=== PATIENT | female | born 1970 | race Caucasian/White ===

== ENCOUNTER 2016-11-05 17:12 | Emergency (ER) | payer OTHER ==
[~2016-11-05 17:12] MED LIST: XANAX0.25 MG PO; ZONISAMIDE25 MG PO
--- NOTE | 2016-11-05 18:04 | ED NURSING NOTES ---
Clinical Report - Nurses [facility] [address] [place] [address] 11/05/2016 17:12 Patient: LANA SOUSA TRIAGE Triage time 1722 PM. Chief Complaint: HEADACHE and (LEFT SIDED HEADACHE, JEW, EYE, NECK). Alert. No acute distress. HAMILTON COMA SCORE: [place] Coma Scale: 15- eyes open spontaneously (4); best verbal response- oriented x 4 (5); best motor response- obeys commands (6). --17:26 Jeremy Mir R.N. 17:22 11/05/16. BP: 136/87. HR: 74. RR: 16. O2 saturation: 98%. Temp: 97.7 F (oral). Pain level now: 07/01. --17:26 Jeremy Mir R.N. Weight: 79.3 kg stated. Height/Length: 65 inches Per Patient. BMI: 29.1. --17:26 Jeremy Mir R.N. Medications Xanax Oral (Tablet 0.25 mg) 1/2 tab , as needed, last dose 0600. --17:24 Jeremy Mir R.N. Allergies Aleve. (TINITIS) --17:24 Jeremy Mir R.N. History Arrived by private vehicle. Historian: patient. This started yesterday. 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 (HEAT). PAST MEDICAL HX: Headaches. SOCIAL HX: Light tobacco smoker (cigarette)- less than 1/2 a pack per day. Occasional alcohol use. History of drug use. (NO). FALL RISK ASSESSMENT: Fall risk assessment completed. No fall risk identified. NUTRITIONAL RISK ASSESSMENT: The nutritional risk assessment revealed no deficiencies. FUNCTIONAL ASSESSMENT: Functional assessment: no impairments noted. LEARNING NEEDS ASSESSMENT: The learning needs assessment revealed no barriers. SKIN INTEGRITY ASSESSMENT: Skin integrity risk assessment completed. No skin integrity risk identified. --17:26 Adeola, Jeremy, R.N. PROBLEMS: Chronic Headache. Tinnitus. Dizziness. Near Syncope. Lesion to right frontal lobe. --17:50 Jeremy Mir R.N. Hypertension [RuleOut]. --17:50 Jeremy Mir R.N. ADDITIONAL SURGERIES: Appendectomy. --17:50 Jeremy Mir R.N. PHYSICAL ASSESSMENT Ambulatory to room. HEENT: No facial asymmetry noted. Pupils equal, round and reactive to light. RESPIRATORY: Respirations not labored. Breath sounds within normal limits. CVS: Capillary refill less than 2 seconds. GI / : Abdomen soft and nontender. SKIN: Skin is warm and dry. --17:27 Jeremy Mir R.N. NURSING PROGRESS NOTES 17:48 11/05/2016 Toradol (Ketorolac Tromethamine) IM 60 mg given. Given in the right gluteus dany. Allergies verified and confirmed 5 rights. --17:48 Jeremy Mir R.N. DISPOSITION / DISCHARGE Departure time: 1849 PM. Condition at departure: improved. The goals identified in the patient's plan of care were met. No learning barriers present. Discharge instructions provided and reviewed with the patient. Reviewed medication(s) side effects, precautions, dosing and course information. Prescription(s) given to the patient. The patient was discharged home and unaccompanied at time of discharge. She left the Emergency Department ambulatory and via private vehicle. Patient driving. FALL RISK ASSESSMENT: Fall risk assessment completed. No fall risk identified. --18:49 Jeremy Mir R.N. Locked/Released at 11/05/2016 18:50 by Jeremy Mir R.N.
--- NOTE | 2016-11-05 18:04 | ED ORDER SUMMARY ---
..... Patient: LANA SOUSA OrderSheet [facility] VisitID: [id number] [address] [place] [address] 46y, F Registration Date/Time: 11/05/2016 ORDER SHEET Weight: 79.3 kg (stated) Allergies: Aleve GENERAL ORDERS: MEDICATION ORDERS: Toradol IM 60 mg (NOW) (17:38 11/05/2016 Srinivas A.R.N.P.) (17:48 Emmanuelle Portillo.NWiley) IV FLUIDS: ORDER SHEET NOTES: [Electronically signed by Jeremy Mir R.N. (18:50 11/05/2016)] [Electronically signed by Sanjuanita CancinoR.N.PWiley (21:40 11/05/2016)] [Electronically locked/signed by Jeremy Mir R.N. (18:50 11/05/2016)]
--- NOTE | 2016-11-05 18:04 | ED NURSING NOTES ---
Clinical Report - Nurses [facility] [address] [place] [address] 11/05/2016 17:12 Patient: LANA SOUSA TRIAGE Triage time 1722 PM. Chief Complaint: HEADACHE and (LEFT SIDED HEADACHE, ORIENTAL ORTHODOX, EYE, NECK). Alert. No acute distress. HAMILTON COMA SCORE: [place] Coma Scale: 15- eyes open spontaneously (4); best verbal response- oriented x 4 (5); best motor response- obeys commands (6). --17:26 Jeremy Mir R.N. 17:22 11/05/16. BP: 136/87. HR: 74. RR: 16. O2 saturation: 98%. Temp: 97.7 F (oral). Pain level now: 07/01. --17:26 Jeremy Mir R.N. Weight: 79.3 kg stated. Height/Length: 65 inches Per Patient. BMI: 29.1. --17:26 Jeremy Mir R.N. Medications Xanax Oral (Tablet 0.25 mg) 1/2 tab , as needed, last dose 0600. --17:24 Jeremy Mir R.N. Allergies Aleve. (TINITIS) --17:24 Jeremy Mir R.N. History Arrived by private vehicle. Historian: patient. This started yesterday. 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 (HEAT). PAST MEDICAL HX: Headaches. SOCIAL HX: Light tobacco smoker (cigarette)- less than 1/2 a pack per day. Occasional alcohol use. History of drug use. (NO). FALL RISK ASSESSMENT: Fall risk assessment completed. No fall risk identified. NUTRITIONAL RISK ASSESSMENT: The nutritional risk assessment revealed no deficiencies. FUNCTIONAL ASSESSMENT: Functional assessment: no impairments noted. LEARNING NEEDS ASSESSMENT: The learning needs assessment revealed no barriers. SKIN INTEGRITY ASSESSMENT: Skin integrity risk assessment completed. No skin integrity risk identified. --17:26 Adeola, Jeremy, R.N. PROBLEMS: Chronic Headache. Tinnitus. Dizziness. Near Syncope. Lesion to right frontal lobe. --17:50 Jeremy Mir R.N. Hypertension [RuleOut]. --17:50 Jeremy Mir R.N. ADDITIONAL SURGERIES: Appendectomy. --17:50 Jeremy Mir R.N. PHYSICAL ASSESSMENT Ambulatory to room. HEENT: No facial asymmetry noted. Pupils equal, round and reactive to light. RESPIRATORY: Respirations not labored. Breath sounds within normal limits. CVS: Capillary refill less than 2 seconds. GI / : Abdomen soft and nontender. SKIN: Skin is warm and dry. --17:27 Jeremy Mir R.N. NURSING PROGRESS NOTES 17:48 11/05/2016 Toradol (Ketorolac Tromethamine) IM 60 mg given. Given in the right gluteus dany. Allergies verified and confirmed 5 rights. --17:48 Jeremy Mir R.N. DISPOSITION / DISCHARGE Departure time: 1849 PM. Condition at departure: improved. The goals identified in the patient's plan of care were met. No learning barriers present. Discharge instructions provided and reviewed with the patient. Reviewed medication(s) side effects, precautions, dosing and course information. Prescription(s) given to the patient. The patient was discharged home and unaccompanied at time of discharge. She left the Emergency Department ambulatory and via private vehicle. Patient driving. FALL RISK ASSESSMENT: Fall risk assessment completed. No fall risk identified. --18:49 Jeremy Mir R.N. Locked/Released at 11/05/2016 18:50 by Jeremy Mir R.N.
--- NOTE | 2016-11-05 18:04 | ED ORDER SUMMARY ---
..... Patient: LANA SOUSA OrderSheet [facility] VisitID: [id number] [address] [place] [address] 46y, F Registration Date/Time: 11/05/2016 ORDER SHEET Weight: 79.3 kg (stated) Allergies: Aleve GENERAL ORDERS: MEDICATION ORDERS: Toradol IM 60 mg (NOW) (17:38 11/05/2016 Srinivas A.R.N.P.) (17:48 Emmanuelle Portillo.NWiley) IV FLUIDS: ORDER SHEET NOTES: [Electronically signed by Jeremy Mir R.N. (18:50 11/05/2016)] [Electronically signed by Sanjuanita CancinoR.N.PWiley (21:40 11/05/2016)] [Electronically locked/signed by Jeremy Mir R.N. (18:50 11/05/2016)]
--- NOTE | 2016-11-05 18:04 | ED CLINICAL REPORT ---
Clinical Report - Physicians/Mid Levels Merg[facility] [address] [place] [address] 11/05/2016 17:12 Patient: LANA SOUSA Time Seen: 1729. Arrived- By private vehicle. Historian- patient. HISTORY OF PRESENT ILLNESS Chief Complaint: HEADACHE and MIGRAINE HEADACHE. This started yesterday. It is described as "pain". Located in the left hemicranial region and facial region and has had neck pain. At its maximum, severity described as severe. When seen in the E.D., severity described as severe. Modifying factors: worsened by bright light; relieved by nothing. The patient has had mild photophobia. There has been no eye redness or discharge, matting or foreign body sensation. No preceding symptoms, blurred vision, associated nausea, numbness or weakness. No vomiting. (pt admits to being on special rx headache but took herself off of it because it wasn't working, sees neuro for headaches). Similar symptoms previously: Chronically, as bad. Recent medical care: Not recently seen/assessed. REVIEW OF SYSTEMS No fever, muscle aches, sinus pressure, ear pain or sore throat. No head injury. All systems otherwise negative, except as recorded above. PAST HISTORY See nurses notes. History of chronic headaches. PROBLEMS: Chronic Headache. Tinnitus. Dizziness. Near Syncope. Lesion to right frontal lobe. --17:50 Jeremy Mir RWileyN. Hypertension [RuleOut]. --17:50 Jeremy Mir, R.N. ADDITIONAL SURGERIES: Appendectomy. --17:50 Jeremy Mir RWileyN. SOCIAL HISTORY Light tobacco smoker. Occasional alcohol use. No drug use. No recent travel. Is a local resident. FAMILY HISTORY Negative. ADDITIONAL NOTES The nursing notes have been reviewed with agreement regarding the chief complaint, HPI, ROS, PMH and patient medications and allergies. PHYSICAL EXAM Vital Signs: 11/05/2016 17:22 BP: 136/87. HR: 74. RR: 16. O2 saturation: 98%. Temp: 97.7 F. Pain level now: 9/10. Have been reviewed as normal and appear to be correct. Appearance: Alert. No acute distress. Eyes: Pupils equal, round and reactive to light. Eyes normal inspection. ENT: Ears normal. Nose normal. Pharynx normal. Neck: Normal inspection. Neck supple. CVS: Normal heart rate and rhythm. Heart sounds normal. Pulses normal. Respiratory: No respiratory distress. Breath sounds normal. Back: Normal inspection. Skin: Skin warm and dry. Normal skin color. No rash. Normal skin turgor. Extremities: Extremities exhibit normal ROM. No lower extremity edema. Neuro: Oriented X 3. Alert. Mood/affect normal. Speech normal. Cranial nerves normal (as tested). No cerebellar findings. No motor deficit. No sensory deficit. PROGRESS AND PROCEDURES Patient counseled in person regarding the patient's stable condition and diagnosis. 18:04. Differential Diagnosis: I considered migraine, cluster headache, subarachnoid hemorrhage, intracranial bleed, vascular malformation, cerebral aneurysm, vascular dissection, vasculitis, temporal arteritis, brain abscess, subdural empyema, sinusitis, dental etiology, influenza, viral syndrome, carbon monoxide exposure, analgesic abuse and trigeminal neuralgia as a possible cause of headache in this patient. This is a partial list of diagnoses considered. Above considerations are based on history and physical exam. Differential diagnosis was discussed with patient. Disposition: Discharged home in good and improved condition (18:04). Condition: good and stable. CLINICAL IMPRESSION Acute, poorly controlled headache. INSTRUCTIONS Warnings: GENERAL WARNINGS: Return or contact your physician immediately if your condition worsens or changes unexpectedly, if not improving as expected, or if other problems arise. SPECIFICALLY, return if you develop fever, vomiting, numbness, weakness, difficulty thinking, visual disturbances, fainting or extreme fatigue. Prescription Medications: Fioricet: Take 1-2 orally every 4 hours as needed for headache. Dispense twenty (20). No refills. Substitution is permissible. Follow-up: Follow up with your doctor in about three days as needed. Call for an appointment. Summary of care provided to patient. Understanding of the discharge instructions verbalized by patient. (Electronically signed by Sanjuanita Cancino A.R.N.P. 11/05/2016 21:40)
--- NOTE | 2016-11-05 21:40 | ED DISCHARGE INSTRUCTIONS ---
Patient: LANA SOUSA General Instructions [facility] VisitID: [id number] [place] [address] 46y, F Registration Date/Time: 11/05/2016 Acute, poorly controlled headache. INSTRUCTIONS Warnings: GENERAL WARNINGS: Return or contact your physician immediately if your condition worsens or changes unexpectedly, if not improving as expected, or if other problems arise. SPECIFICALLY, return if you develop fever, vomiting, numbness, weakness, difficulty thinking, visual disturbances, fainting or extreme fatigue. Prescription Medications: Fioricet: Take 1-2 orally every 4 hours as needed for headache. Dispense twenty (20). No refills. Substitution is permissible. Follow-up: Follow up with your doctor in about three days as needed. Call for an appointment. Summary of care provided to patient. Understanding of the discharge instructions verbalized by patient. ADDITIONAL INFORMATION Headache [Unspecified] The cause of your headache today is not clear, but it does not appear to be the sign of any serious illness. Under stress, some people tense the muscles of their shoulder, neck and scalp without knowing it. If this condition lasts long enough, a TENSION HEADACHE can occur. A MIGRAINE HEADACHE is caused by changes in blood flow to the brain. A migraine attack may be triggered by emotional stress, hormone changes during the menstrual cycle, oral contraceptives, alcohol use, certain foods containing tyramine, eye strain, weather changes, missing meals, lack of sleep or oversleeping. Other causes of headache include a viral illness with high fever, head injury with concussion, sinus, ear or throat infection, dental pain and TMJ (jaw joint) pain. More serious but less common causes of headache include stroke, brain hemorrhage, brain tumor, meningitis and encephalitis. Home Care: If you were given pain medicine for this headache, do not drive yourself home. Arrange for a ride, instead. When you get home, try to sleep. You should feel much better when you wake up. Apply heat to the back of your neck to relieve neck muscle spasm. Migraine headaches may respond best to an ice pack on the forehead or at the base of the skull. If you are having nausea or vomiting, follow a light diet until your headache is relieved. If you have a migraine type headache, use sunglasses when in the daylight or around bright indoor lighting until symptoms improve. Bright glaring light can worsen this kind of headache. Follow Up with your doctor if the headache is not better within the next 24 hours. If you have frequent headaches you should discuss a treatment plan with your primary care doctor. By being aware of the earliest signs of headache, and starting treatment right away, you may be able to stop the pain yourself. Get Prompt Medical Attention if any of the following occur: Worsening of your head pain or no improvement within 24 hours Repeated vomiting (unable to keep liquids down) Fever of 100.4F (38C) or higher, or as directed by your healthcare provider Stiff neck Extreme drowsiness, confusion or fainting Dizziness, vertigo (dizziness with spinning sensation) Weakness of an arm or leg or one side of the face Difficulty with speech or vision Butalbital, Acetaminophen, Caffeine Oral tablet What is this medicine? ACETAMINOPHEN; BUTALBITAL; CAFFEINE (a set a KAL lisa fen; byoo EVER bi ever; KAF een) is a pain reliever. It is used to treat tension headaches. How should I use this medicine? Take this medicine by mouth with a full glass of water. Follow the directions on the prescription label. If the medicine upsets your stomach, take the medicine with food or milk. Do not take more than you are told to take. Talk to your ear pull machine operator regarding the use of this medicine in children. Special care may be needed. What side effects may I notice from receiving this medicine? Side effects that you should report to your doctor or health childbirth and infant care teacher as soon as possible: allergic reactions like skin rash, itching or hives, swelling of the face, lips, or tongue breathing problems confusion feeling faint or lightheaded, falls redness, blistering, peeling or loosening of the skin, including inside the mouth seizure stomach pain yellowing of the eyes or skin Side effects that usually do not require medical attention (report to your doctor or health childbirth and infant care teacher if they continue or are bothersome): constipation nausea, vomiting What may interact with this medicine? alcohol or medicines that contain alcohol antidepressants, especially MAOIs like isocarboxazid, phenelzine, tranylcypromine, and selegiline antihistamines benzodiazepines carbamazepine isoniazid medicines for pain like pentazocine, buprenorphine, butorphanol, nalbuphine, tramadol, and propoxyphene muscle relaxants naltrexone phenobarbital, phenytoin, and fosphenytoin phenothiazines like perphenazine, thioridazine, chlorpromazine, mesoridazine, fluphenazine, prochlorperazine, promazine, and trifluoperazine voriconazole What if I miss a dose? If you miss a dose, take it as soon as you can. If it is almost time for your next dose, take only that dose. Do not take double or extra doses. Where should I keep my medicine? Keep out of the reach of children. This medicine can be abused. Keep your medicine in a safe place to protect it from theft. Do not share this medicine with anyone. Selling or giving away this medicine is dangerous and against the law. Store at room temperature between 15 and 30 degrees C (59 and 86 degrees F). Keep container tightly closed. Protect from light. Throw away any unused medicine after the expiration date. What should I tell my health care provider before I take this medicine? They need to know if you have any of these conditions: drink more than 3 alcohol-containing drinks per day drug abuse or addiction heart or circulation problems kidney disease or problems going to the bathroom liver disease lung disease, asthma, or breathing problems porphyria an unusual or allergic reaction to acetaminophen, butalbital or other barbiturates, caffeine, other medicines, foods, dyes, or preservatives or trying to get breast-feeding What should I watch for while using this medicine? Tell your doctor or health childbirth and infant care teacher if your pain does not go away, if it gets worse, or if you have new or a different type of pain. You may develop tolerance to the medicine. Tolerance means that you will need a higher dose of the medicine for pain relief. Tolerance is normal and is expected if you take the medicine for a long time. Do not suddenly stop taking your medicine because you may develop a severe reaction. Your body becomes used to the medicine. This does NOT mean you are addicted. Addiction is a behavior related to getting and using a drug for a non-medical reason. If you have pain, you have a medical reason to take pain medicine. Your doctor will tell you how much medicine to take. If your doctor wants you to stop the medicine, the dose will be slowly lowered over time to avoid any side effects. You may get drowsy or dizzy when you first start taking the medicine or change doses. Do not drive, use machinery, or do anything that may be dangerous until you know how the medicine affects you. Stand or sit up slowly. Do not take other medicines that contain acetaminophen with this medicine. Always read labels carefully. If you have questions, ask your doctor or pharmacist. If you take too much acetaminophen get medical help right away. Too much acetaminophen can be very dangerous and cause liver damage. Even if you do not have symptoms, it is important to get help right away. You have been given the following additional information: Headache, Unspecified Butalbital, Acetaminophen, Caffeine Oral tablet (Electronically signed by Sanjuanita Cancino A.R.N.PWiley 11/05/2016 21:40)
--- NOTE | 2016-11-05 21:41 | ED MAR SUMMARY ---
..... Medication Administration Record [facility] [address] [place] [address] Patient: LANA SOUSA Visit ID: [id number] 46y, F Weight: 79.3 kg Height/Length: 65 in BMI: 29.1 ALLERGIES: Aleve Given 17:48 11/05/2016 Jeremy Mir R.N. Medication Administered: TORADOL [IM] (KETOROLAC TROMETHAMINE), Dose: 60 mg IM. Medication Ordered: Toradol IM 60 mg (NOW).
--- NOTE | 2016-11-05 21:41 | ED MED RECONCILIATION SUMMARY ---
Patient: LANA SOUSA Medication Reconciliation Report [facility] VisitID: [id number] [address] [place] [address] 46y, F Registration Date/Time: 11/05/2016 Weight: 79.3 kg Height/Length: 65 in. BMI: 29.1 ALLERGIES: Aleve The patient's Home Medications are listed below: THE FOLLOWING MEDICATIONS NEED TO BE RECONCILED: Xanax Oral (0.25 mg) 1/2 tab , last dose: 0600 The source(s) of the original Home Medication information: Not obtained. The following Medications were given to the patient in the Emergency Department: Toradol [IM] IM 60 mg, administered: 11/05/2016 5:48:00 PM The following Medications were prescribed to the patient: Fioricet: Take 1-2 orally every 4 hours as needed for headache. Dispense twenty (20). No refills. Substitution is permissible. -- Sanjuanita Cancino A.R.N.P.
--- NOTE | 2016-11-05 21:41 | ED MAR SUMMARY ---
..... Medication Administration Record [facility] [address] [place] [address] Patient: LANA SOUSA Visit ID: [id number] 46y, F Weight: 79.3 kg Height/Length: 65 in BMI: 29.1 ALLERGIES: Aleve Given 17:48 11/05/2016 Jeremy Mir R.N. Medication Administered: TORADOL [IM] (KETOROLAC TROMETHAMINE), Dose: 60 mg IM. Medication Ordered: Toradol IM 60 mg (NOW).
--- NOTE | 2016-11-05 21:41 | ED MED RECONCILIATION SUMMARY ---
Patient: LANA SOUSA Medication Reconciliation Report [facility] VisitID: [id number] [address] [place] [address] 46y, F Registration Date/Time: 11/05/2016 Weight: 79.3 kg Height/Length: 65 in. BMI: 29.1 ALLERGIES: Aleve The patient's Home Medications are listed below: THE FOLLOWING MEDICATIONS NEED TO BE RECONCILED: Xanax Oral (0.25 mg) 1/2 tab , last dose: 0600 The source(s) of the original Home Medication information: Not obtained. The following Medications were given to the patient in the Emergency Department: Toradol [IM] IM 60 mg, administered: 11/05/2016 5:48:00 PM The following Medications were prescribed to the patient: Fioricet: Take 1-2 orally every 4 hours as needed for headache. Dispense twenty (20). No refills. Substitution is permissible. -- Sanjuanita Cancino A.R.N.P.
== END 2016-11-05 18:48 | disposition home or self-care (01) ==
LOC: ED SRH 17:12
DX: R51 Headache (principal); F17.200 Nicotine dependence, unspecified, uncomplicated